=== PATIENT | male | born 1945 | race Caucasian/White ===

== ENCOUNTER → 2017-08-21 | Outpatient (CLI) | payer MEDICARE ==
[~2017-08-21] MED LIST: AMITRIPTYLINE10 MG PO; AMITRIPTYLINE100 M1 PO; AMITRIPTYLINE50 MG PO; ASPIRIN81 M1 PO; AUGMENTIN 875 M1 TAB PO; CILOXAN 5 ML5 ML OPH; FLAGYL500 MG PO; FLOMAX0.4 MG PO; LEADER NATURA500 MCG PO; LORAZEPAM0.5 MG PO; NORCO 5-325 TA1 EACH PO; PRILOSEC20 MG PO; TRAZADONE HYDR100 MG PO; VENLAFAXINE150 MG PO; VIAGRA100 MG PO; VITAMIN B12500 MCG PO; Zofran4 MG PO
[2017-08-21 10:16] LABS: HEMATOCRIT 48.4 % (42.0-52.0); HEMOGLOBIN 16.9 g/dl (14.0-18.0); MEAN CELL VOLUME 89.1 fl (80.0-94.0); MEAN CORPUSCULAR HGB 31.1 pg (27.0-31.0); MEAN CORPUSCULAR HGB CONC 34.9 g/dl (33.0-37.0); MEAN PLATELET VOLUME 9.8 fl (9.6-12.3); RED BLOOD COUNT 5.43 10*6/uL (4.50-5.90); RED CELL DISTRI WIDTH 13.3 % (0-14.5); WHITE BLOOD COUNT 7.4 10*3/uL (4.8-10.8)
[2017-08-21 10:39] LABS: ALBUMIN 3.6 gm/dl (3.1-4.5); BUN 11 mg/dl (7-24); CHLORIDE 104 mmol/L (98-107); CHOLESTEROL 149 mg/dL (<200); CPK 124 U/L (39-308); CREATININE 1.33 mg/dL (0.70-1.30); HDL CHOLESTEROL 47 mg/dl (40-60); LDL CHOLESTEROL 60 mg/dL (9-159); POTASSIUM 4.2 mmol/L (3.5-5.1); SGOT/AST 24 IU/L (3-35); SGPT/ALT 30 U/L (12-78); SODIUM 141 mmol/L (136-145); TRIGLYCERIDES 212 mg/dl (<150); VLDL CHOLESTEROL 42 mg/dL (6-40)
[2017-08-21 10:47] LABS: ALKALINE PHOSPHATASE 93 U/L (45-117)
== END | disposition home or self-care (01) ==
LOC: LAB 09:38
PROVIDERS: Family Medicine
DX: E55.9 Vitamin D deficiency, unspecified (principal); E78.00 Pure hypercholesterolemia, unspecified

== ENCOUNTER → 2017-09-26 | Outpatient (CLI) | payer MEDICARE ==
[~2017-09-26] MED LIST changes: +ARICEPT5 M1 PO; +Asacol PO; +MELATONIN3 MG PO; +OMEPRAZOLE MAGN20 MG PO; +PRILOSEC2.5 MG PO; -PRILOSEC20 MG PO; +REFRESH TEARS15 ML OU; +TRAZODONE150 MG PO; +VITAMIN D-32000 UNIT PO
== END | disposition home or self-care (01) ==
LOC: LAB 14:05
DX: R19.7 Diarrhea, unspecified (principal); G89.29 Other chronic pain

== ENCOUNTER 2017-09-27 01:40 | Inpatient (IN) | payer MEDICARE, OTHER ==
[2017-09-27] VITALS (11 sets, daily range): BP systolic 102–137; BP diastolic 62–88
[~2017-09-27] VITALS: Ht 180.3 cm; Wt 104.6 kg
--- NOTE | ~2017-09-27 | DS ---
[place], [place] DISCHARGE SUMMARY NAME: CJ MURPHY UNIT #: [id number] ROOM: 521 DOCTOR: HIEU AGUIRRE MD BIRTHDATE: [birth year] DOS: 09/29/2017 DIAGNOSES: 1. Diarrhea of unknown etiology, status post endoscopy and colonoscopy. Biopsies pending. 2. Small hiatal hernia with gastritis and duodenitis. 3. History of chronic otitis media with tympanostomy. 4. Major depression, recurrent, mild. 5. Polyp removal from colonoscopy with diverticulosis. MEDICATIONS ON DISCHARGE: As continued the patient's home medications and the patient was also started on Asacol for 7 days, the PCP to determine the continuation of medication after pathology report is available. The patient was started on famotidine 40 mg daily, which was started by Dr. Saavedra. HOSPITAL COURSE: This patient is not known to me. Patient of Dr. Roberts, comes in with complaints of diarrhea of 2 months' duration. Over 2 months, he keeps having diarrhea on and off. There is no associated fever, no associated blood in the stools. No abdominal pain. He was seen in the Emergency Room, a CT scan was done, which was negative except for diverticulosis. After admission, IV fluids were given. Ova and parasites, stool for C. diff was checked. They all came back negative. He was started on Asacol for possible microscopic colitis. The patient had a consultation with Dr. Saavedra. He has chronic kidney disease with mild acute kidney injury from ATN. IV fluids were given. This did bring the kidney functions back to its baseline. He had drooping of the left eye, which gets worse as the day progresses. Myasthenia gravis workup was done, we do not have the results yet. The patient also had workup for celiac sprue. We do not have the results of that either at the time of dictation. The patient after colonoscopy and endoscopy was discharged home to be followed by Dr. Roberts. The patient is also advised to talk to PCP about readjustment of psych medications. [place], [place] DISCHARGE SUMMARY NAME: CJ MURPHY UNIT #: [id number] ROOM: 521 DOCTOR: HIEU AGUIRRE MD BIRTHDATE: [birth year] HIEU AGUIRRE MD CM:JOÃO 1925 223 HIEU AGUIRRE MD 10/02/17 0211 interface
--- NOTE | ~2017-09-27 | CON ---
[place], [place] REPORT OF CONSULTATION NAME: CJ MURPHY UNIT #: [id number] ROOM: 521 DOCTOR: KAIDEN HAHN MD BIRTHDATE: [birth year] DOS: 09/29/2017 HISTORY OF PRESENT ILLNESS: This gentleman has presented with chief complaint of abdominal distress, cramp, diarrhea with initial white blood cell was 13 with H and H of 19 and 56. His calcium was 4.6, which is within normal limit in this laboratory. Lactic acid is 2.8. INR was 1.1. Comprehensive metabolic panel: BUN and creatinine are 11 and 1.3, GFR greater than 60. Liver function tests normal. Troponin within normal limits. CT scan of the abdomen and pelvis was performed and no evidence of obstructive pathology, status post cholecystectomy and coronary calcifications are seen. A small hiatal hernia was noticed. Hepatic steatosis is seen as well. There is no bowel wall thickening in the small bowel. Lactic acid normalized to 1.8. C. diff at 2 sessions was done, both negative. Ova and parasite negative. Blood cultures, no growth was identified. PAST MEDICAL HISTORY: Enteritis, atypical chest pain. PAST SURGICAL HISTORY: Neck and gallbladder cholecystectomy. SOCIAL HISTORY: Nonsmoker, nonalcohol consumer. ALLERGIES: Allergic to no medication. FAMILY HISTORY: Noncontributory. MEDICATION: List has been reviewed, associated with anxiety, PTSD history. He has been on omeprazole at home. REVIEW OF SYSTEMS: HEENT: Denies double vision, blurred vision. RESPIRATORY: Denies shortness of breath. CARDIOVASCULAR: Denies acute chest pain. DIGESTIVE SYSTEM: Abdominal pain, cramp, diarrhea. PHYSICAL EXAMINATION: VITAL SIGNS: Stable. HEENT: Head is normocephalic, nontraumatic. Mouth and buccal mucosa benign. NECK: Supple, no thyromegaly, no cervical lymphadenopathy. CHEST: Symmetric anatomy, equal expansion. No wheeze, no rhonchi. HEART: Normal sinus rhythm, no gallop, no murmur. ABDOMEN: Soft. No hepato-organomegaly. Bowel sounds present. No pulsatile mass. EXTREMITIES: No cyanosis, no pedal edema. NEUROLOGIC: Alert, oriented to time, place, person. IMPRESSION: Diarrhea, persistently with Clostridium difficile and ova and parasite negativity. Blood cultures negative. PLAN AND DISCUSSION: Investigation of persistent diarrhea. Other adjunctive diagnoses as outlined in past medical history, anxiety as well as PTSD as well [place], [place] REPORT OF CONSULTATION NAME: CJ MURPHY UNIT #: [id number] ROOM: 521 DOCTOR: KAIDEN HAHN MD BIRTHDATE: [birth year] as fatty metamorphosis of the liver and coronary artery calcification. We are going to proceed with colonoscopy. KAIDEN HAHN MD CM:CONSTR:REPORT OF CONSULTATION 1644 09/30/17 0155 interface
--- NOTE | ~2017-09-27 | O ---
[place], [place] OPERATIVE NOTE [id number] UNIT #: [id number] ROOM: 521 DOCTOR: KAIDEN HAHN MD BIRTHDATE: [birth year] DOS: 09/29/2017 INDICATIONS: A 72 years old patient, who has presented with multiple issues among which has been compliant of diarrhea, change in bowel habit, dyspepsia, diarrhea has been investigated. No infectious causes were identified. A CT scan of the abdomen and pelvis was obtained. Coronary calcification, hepatic steatosis, prior cholecystectomy, all has been recognized. The patient with dyspepsia and diarrhea, undergoing investigation. PROCEDURE: Today's procedure part of investigation is panendoscopy plus biopsy and photographic series and colonoscopy plus biopsy. PREMEDICATION: Versed and Diprivan. SCOPE: Olympus forward-viewing gastroscope Q10 video. REPORT: After putting the patient in left lateral position and application of lubricant to the scope. Scope was introduced. Thereafter, under direct visualization, advanced through the length of esophagus without difficulty. Small hiatal hernia was noticed. Gastric pouch was entered. Gastritis was identified. Antral biopsy obtained. Duodenum was entered. Duodenitis seen. Air was suctioned out. Photographic series obtained. The patient extubated, tolerated procedure well. IMPRESSION: Small hiatal hernia, 2 cm, gastritis, and duodenitis. PLAN AND DISCUSSION: We will treat this condition with famotidine 40 mg 1 daily and clinically reassess. We will proceed with colonoscopy as well. GASTROENDOSCOPIC REPORT INDICATIONS: The patient has presented with diarrhea, abdominal cramp, undergoing investigation. The patient suspected pathology in the colon with diarrhea. PROCEDURE: Today's procedure part of investigation is colonoscopy plus polypectomy plus biopsies. PREMEDICATION: Versed and Diprivan. SCOPE: Olympus forward-viewing colonoscope 10L video. REPORT: After putting the patient in left lateral position and application of lubricant to the scope, the scope was introduced. Thereafter, under direct visualization, I advanced through the length of colon without difficulty. Random biopsies of the colon were obtained. Sessile polypoid lesion in hepatic flexure with piecemeal polypectomy was done. Diverticulosis was identified, therefore base of the cecum explored, appendiceal orifice identified, ileocecal valve was defined. Scope was gradually withdrawn. The patient was extubated, tolerated procedure well. [place], [place] OPERATIVE NOTE NAME: CJ MURPHY UNIT #: [id number] ROOM: 521 DOCTOR: SELMA SCHOFIELD,KAIDEN BIRTHDATE: [birth year] IMPRESSION: 1. Sessile polyp with lesion and hepatic flexure, status post piecemeal polypectomy. 2. Status post random biopsy of colon for etiology of diarrhea, ruling out collagenous colitis. 3. Rare diverticulosis of the left side of the colon and hyperplastic polyps with lesions, small. PLAN AND DISCUSSION: This patient is status post cholecystectomy. C. diff and ova and parasite has been negative. All other studies negative. I am going to proceed with trial of Questran 1 pack daily and follow up in 2 weeks in the office with the biopsy reassessment. KAIDEN HAHN MD CM:OPRCLARKORD:OPERATIVE NOTE 1720 [id number] HIEU HAHN MD 09/29/17 1807 interface
--- NOTE | ~2017-09-27 | PR ---
[place], [place] PROGRESS NOTE [id number] UNIT #: [id number] ROOM: 521 DOCTOR: HIEU AGUIRRE MD BIRTHDATE: [birth year] DOS: SUBJECTIVE: The patient states that he is getting enemas, so he is not really sure whether his diarrhea has resolved, but he did not have more than 2 bowel movements yesterday during daytime. OBJECTIVE: VITAL SIGNS: Graphic trend shows blood pressure 128/65, pulse of 54, respirations 20, temperature 98.4. LUNGS: Clear. HEART: Regular. ABDOMEN: Obese, nontender. ASSESSMENT AND PLAN: 1. Diarrhea of unknown etiology, most likely microscopic colitis. Awaiting colonoscopy with biopsies today. 2. Acute kidney injury, possibly from mild dehydration, which has corrected. He is back at his baseline of stage 3 renal failure. 3. History of depression, on multiple medications, which are continued. The plan is to discharge him to home today after the colonoscopy. HIEU AGUIRRE MD CM:PNTRANS 1 [id number] HIEU AGUIRRE MD 09/29/17 0947 interface
--- NOTE | ~2017-09-27 | WRIGHTHP ---
[place], [place] PATIENT HISTORY AND PHYSICAL EXAM NAME: CJ MURPHY [facility] #: [id number] UNIT #: [id number] ROOM: 521 DOCTOR: HIEU AGUIRRE MD BIRTHDATE: [birth year] DOS: 09/27/2017 HISTORY OF PRESENT ILLNESS: This patient is 72-year-old, patient of Dr. Roberts, comes in with complaints of diarrhea for 2 months' duration. The patient states that the diarrhea comes and goes, sometimes it lasts for days without any relief at all and then sometimes it quits for a few days and then it comes back. He denies having any chest pains, palpitations. He does not have any fever or chills. He does have some occasional abdominal pain, but does not have any urinary symptoms. His pain is all across his abdomen and it radiates up into his chest at times. He has not been placed on any new medications. He does not take any [id number] medications other than his aspirin. PAST MEDICAL HISTORY: Significant for history of major depression, mild; history of chronic otitis media with history of tympanostomy placement. MEDICATIONS: He is currently on amitriptyline 100 at bedtime, aspirin 81 daily, vitamin D 2000 units daily, B12 500 mcg daily, Aricept 5 daily, lorazepam 0.5 daily, melatonin 3 mg at bedtime, omeprazole 20 daily, trazodone 150 at bedtime, venlafaxine 150 mg daily. SOCIAL HISTORY: Nonsmoker, does not use any alcohol. Lives at home. He is retired. He is . He has 3 grown children. PHYSICAL EXAMINATION: GENERAL: He is awake and alert and oriented. VITAL SIGNS: Graphic trend shows blood pressure 111/62, pulse 63, respirations 20, temperature 98.1. LUNGS: Diminished breath sounds. No wheezes heard. HEART: Regular. ABDOMEN: Obese, soft. Some diffuse tenderness present. EXTREMITIES: Without any edema. HEENT: Left side, there is drooping of his left eyelid. ASSESSMENT AND PLAN: 1. The patient with chronic diarrhea, unknown etiology. Dr. Saavedra has been consulted. Infectious Disease workup so far with ova and parasites, stool for Clostridium difficile has come back negative. Continue IV fluids. The patient may have underlying microscopic colitis. We will do a colonoscopy. 2. CT of the abdomen and pelvis does not show any evidence of any ongoing pathology. 3. Post-cholecystectomy, may have post-cholecystectomy diarrhea. I will place him on Questran. 4. Chronic kidney disease. The patient is aware of his history. Slow IV rehydration will be given. Repeat labs will be ordered for tomorrow. 5. Possibility of myasthenia gravis was raised with the drooping left eye. The patient tells me that he had complete workup and he was told that this has come back negative. [place], [place] PATIENT HISTORY AND PHYSICAL EXAM [facility]: [id number] UNIT #: [id number] ROOM: 521 DOCTOR: HIEU AGUIRRE MD BIRTHDATE: [birth year] HIEU AGUIRRE MD CM:HISPHYS:PATIENT HISTORY AND PHYSICAL EXAMINATION 1620 173 HIEU AGUIRRE MD 09/27/17 1730 interface
--- NOTE | ~2017-09-27 | PR ---
[place], [place] PROGRESS NOTE [id number] UNIT #: [id number] ROOM: 521 DOCTOR: HIEU AGUIRRE MD BIRTHDATE: [birth year] DOS: SUBJECTIVE: The patient did have 3-4 bowel movements during the day yesterday. He rested well during the night and did not have any this morning. OBJECTIVE: VITAL SIGNS: Graphic trend shows blood pressure of 116/65, pulse of 62, respirations 20, temperature 98.2. LUNGS: Diminished breath sounds. No wheezes heard. HEART: Regular. ABDOMEN: Obese. EXTREMITIES: Without any edema. HEENT: No drooping of the left eyelid noted this morning. ASSESSMENT AND PLAN: 1. The patient with diarrhea, possibly multifactorial, still in the evaluation process. He is still being evaluated for medical conditions. Antigliadin antibody will be ordered today and also he continues to be on Asacol. Dr. Saavedra possibly will do the colonoscopy tomorrow. If not, plan is to discharge. 2. Left-sided eye drooping. This is not present this morning, but as the day progresses it gets worse, so we will have to rule out myasthenia gravis with anti-cholinesterase antibodies. HIEU AGUIRRE MD CM:PNTRANS [id number] HIEU AGUIRRE MD 09/28/17 1051 interface
[~2017-09-27 01:40] MED LIST changes: -ARICEPT5 M1 PO; -Asacol PO; -MELATONIN3 MG PO; -OMEPRAZOLE MAGN20 MG PO; -REFRESH TEARS15 ML OU; -TRAZODONE150 MG PO; -VITAMIN D-32000 UNIT PO
[2017-09-27 02:13] LABS: BASO # 0.1 10*3/uL (0.0-0.1); BASO % 0.4 % (0.0-1.0); EOS # 0.7 10*3/uL (0.0-0.4); EOS % 5.4 % (1.0-4.0); HEMATOCRIT 56.9 % (42.0-52.0); HEMOGLOBIN 19.3 g/dl (14.0-18.0); LYMPH % 15.3 % (27.0-41.0); MEAN CELL VOLUME 88.8 fl (80.0-94.0); MEAN CORPUSCULAR HGB 30.1 pg (27.0-31.0); MEAN CORPUSCULAR HGB CONC 33.9 g/dl (33.0-37.0); MEAN PLATELET VOLUME 9.4 fl (9.6-12.3); MONO # 0.8 10*3/uL (0.1-1.0); MONO % 6.3 % (3.0-9.0); NEUT # 9.6 10*3/uL (2.3-7.9); NEUT % 72.3 % (47.0-73.0); PLATELET COUNT AUTOMATED 169 10*3/uL (130-400); RED BLOOD COUNT 6.41 10*6/uL (4.50-5.90); RED CELL DISTRI WIDTH 13.2 % (0-14.5); WHITE BLOOD COUNT 13.2 10*3/uL (4.8-10.8)
[2017-09-27 02:23] LABS: INTERNATIONAL NORM RATIO 1.1 (2.0-3.5)
[2017-09-27 02:29] LABS: CHLORIDE 105 mmol/L (98-107); POTASSIUM 3.7 mmol/L (3.5-5.1); SODIUM 141 mmol/L (136-145)
[2017-09-27 02:45] LABS: ALBUMIN 3.8 gm/dl (3.1-4.5); ALKALINE PHOSPHATASE 77 U/L (45-117); BUN 11 mg/dl (7-24); CREATININE 1.32 mg/dL (0.70-1.30); LIPASE 126 U/L (73-393); SGOT/AST 18 IU/L (3-35); SGPT/ALT 30 U/L (12-78); TOTAL PROTEIN 7.4 gm/dL (6.4-8.2)
[2017-09-27 02:50] LABS: TROPONIN I < 0.015 ng/ml (<0.045)
[2017-09-27 03:38] LABS: BILIRUBIN NEGATIVE (NEGATIVE); BLOOD NEGATIVE (NEGATIVE); CLARITY SL CLOUDY (CLEAR); COLOR YELLOW (YELLOW); GLUCOSE NEGATIVE (NEGATIVE); KETONE TRACE (NEGATIVE); LEUKO ESTERASE NEGATIVE (NEGATIVE); NITRITE NEGATIVE (NEGATIVE); UROBILINOGEN 0.2 E.U./dl (0.2-1.0)
[2017-09-27 03:54] LABS: WBC 0-2 wbc/hpf (0-5)
[2017-09-27 03:55] LABS: BACTERIA TRACE
[2017-09-27] MEDS ORDERED: VITAMIN D-32000 UNIT PO (06:24)
[2017-09-27] MEDS ORDERED: MELATONIN3 MG PO (06:25)
[2017-09-27] MEDS ORDERED: OMEPRAZOLE MAGN20 MG PO (06:27)
[2017-09-27] MEDS ORDERED: ARICEPT5 M1 PO (06:35)
[2017-09-27] MEDS ORDERED: TRAZODONE150 MG PO (06:37)
[2017-09-27] MEDS ORDERED: REFRESH TEARS15 ML OU (06:39)
[2017-09-28] VITALS: BP 106/63
[2017-09-28 05:55] LABS: BASO % 0.3 % (0.0-1.0); EOS # 1.3 10*3/uL (0.0-0.4); EOS % 13.4 % (1.0-4.0); LYMPH # 2.7 10*3/uL (1.3-4.4); LYMPH % 27.3 % (27.0-41.0); MEAN CELL VOLUME 91.3 fl (80.0-94.0); MEAN CORPUSCULAR HGB 31.2 pg (27.0-31.0); MEAN CORPUSCULAR HGB CONC 34.2 g/dl (33.0-37.0); MEAN PLATELET VOLUME 9.6 fl (9.6-12.3); MONO # 0.9 10*3/uL (0.1-1.0); MONO % 8.6 % (3.0-9.0); NEUT % 50.1 % (47.0-73.0); PLATELET COUNT AUTOMATED 132 10*3/uL (130-400); RED BLOOD COUNT 5.03 10*6/uL (4.50-5.90); RED CELL DISTRI WIDTH 13.2 % (0-14.5)
[2017-09-28 06:12] LABS: BUN 10 mg/dl (7-24); CHLORIDE 108 mmol/L (98-107); CREATININE 1.36 mg/dL (0.70-1.30); POTASSIUM 3.6 mmol/L (3.5-5.1); SODIUM 142 mmol/L (136-145)
[2017-09-28 06:23] LABS: HEMATOCRIT 45.9 % (42.0-52.0); HEMOGLOBIN 15.7 g/dl (14.0-18.0)
[2017-09-28 08:00] VITALS: BP 116/65
[2017-09-28 12:00] VITALS: BP 107/55
[2017-09-28 16:00] VITALS: BP 118/72
[2017-09-28 20:00] VITALS: BP 137/78
[2017-09-29] VITALS (7 sets, daily range): BP systolic 104–147; BP diastolic 51–80
[2017-09-29] MEDS ORDERED: Asacol PO (09:01)
[2017-09-30 13:06] LABS: t-TRANSGLUTAMINASE (tTG) IGA <2 U/mL (0-3); t-TRANSGLUTAMINASE (tTG) IgG 3 U/mL (0-5)
[2017-09-30 15:04] LABS: ENDOMYSIAL ANTIBODY IgA Negative (Negative)
== END 2017-09-29 19:05 | disposition home or self-care (01) | DRG 872 ==
LOC: ED 01:40 → 5E 05:14 → EDHOLD 05:14 → 5E 05:24
PROVIDERS: Emergency Medicine Emergency Medical Services; Internal Medicine; Internal Medicine Gastroenterology
PROC: 5A09357 Assistance with Respiratory Ventilation, Less than 24 Consecutive Hours, Continuous Positive Airway Pressure (ICD-10-PCS; principal; 2017-09-28)
PROC: 0DB68ZX Excision of Stomach, Via Natural or Artificial Opening Endoscopic, Diagnostic (ICD-10-PCS; 2017-09-29)
PROC: 0DBL8ZZ Excision of Transverse Colon, Via Natural or Artificial Opening Endoscopic (ICD-10-PCS; 2017-09-29)
PROC: 0DBE8ZX Excision of Large Intestine, Via Natural or Artificial Opening Endoscopic, Diagnostic (ICD-10-PCS; 2017-09-29)
DX: A41.9 Sepsis, unspecified organism (principal); N17.9 Acute kidney failure, unspecified; F32.9 Major depressive disorder, single episode, unspecified; N18.3 Chronic kidney disease, stage 3 (moderate); K44.9 Diaphragmatic hernia without obstruction or gangrene; K76.0 Fatty (change of) liver, not elsewhere classified; K52.9 Noninfective gastroenteritis and colitis, unspecified; F43.10 Post-traumatic stress disorder, unspecified; K29.70 Gastritis, unspecified, without bleeding; K63.5 Polyp of colon; K29.80 Duodenitis without bleeding; K57.30 Diverticulosis of large intestine without perforation or abscess without bleeding; I25.10 Atherosclerotic heart disease of native coronary artery without angina pectoris; F41.9 Anxiety disorder, unspecified; Z87.442 Personal history of urinary calculi; Z79.899 Other long term (current) drug therapy; Z79.82 Long term (current) use of aspirin; Z90.49 Acquired absence of other specified parts of digestive tract

== ENCOUNTER 2017-12-29 09:58 | Emergency (ER) | payer MEDICARE, OTHER ==
[~2017-12-29] VITALS: Ht 180.3 cm; Wt 106.6 kg
[~2017-12-29 09:58] MED LIST changes: +ARICEPT5 M1 PO; +Asacol PO; +MELATONIN3 MG PO; +OMEPRAZOLE MAGN20 MG PO; +REFRESH TEARS15 ML OU; +TRAZODONE150 MG PO; +VITAMIN D-32000 UNIT PO
[2017-12-29 10:17] LABS: BASO % 0.4 % (0.0-1.0); EOS # 0.4 10*3/uL (0.0-0.4); EOS % 3.7 % (1.0-4.0); HEMATOCRIT 54.8 % (42.0-52.0); HEMOGLOBIN 18.6 g/dl (14.0-18.0); LYMPH # 1.9 10*3/uL (1.3-4.4); MEAN CELL VOLUME 90.1 fl (80.0-94.0); MEAN CORPUSCULAR HGB 30.6 pg (27.0-31.0); MEAN CORPUSCULAR HGB CONC 33.9 g/dl (33.0-37.0); MEAN PLATELET VOLUME 9.5 fl (9.6-12.3); MONO # 0.9 10*3/uL (0.1-1.0); MONO % 9.1 % (3.0-9.0); NEUT # 6.8 10*3/uL (2.3-7.9); NEUT % 67.5 % (47.0-73.0); PLATELET COUNT AUTOMATED 161 10*3/uL (130-400); RED BLOOD COUNT 6.08 10*6/uL (4.50-5.90); RED CELL DISTRI WIDTH 12.9 % (0-14.5); WHITE BLOOD COUNT 10.1 10*3/uL (4.8-10.8)
[2017-12-29 10:36] LABS: ALBUMIN 3.8 gm/dl (3.1-4.5); ALKALINE PHOSPHATASE 75 U/L (45-117); BUN 16 mg/dl (7-24); CHLORIDE 105 mmol/L (98-107); LIPASE 80 U/L (73-393); SGOT/AST 17 IU/L (3-35); SGPT/ALT 39 U/L (12-78); SODIUM 138 mmol/L (136-145); TOTAL PROTEIN 7.5 gm/dL (6.4-8.2)
[2017-12-29] MEDS ORDERED: ZOFRAN4 MG PO (12:07)
[2017-12-29 13:00] VITALS: BP 106/65
== END 2017-12-29 13:16 | disposition home or self-care (01) ==
LOC: ED 09:58
PROVIDERS: Nurse Practitioner Family
DX: R10.9 Unspecified abdominal pain (principal); R03.0 Elevated blood-pressure reading, without diagnosis of hypertension; Z79.82 Long term (current) use of aspirin; Z79.899 Other long term (current) drug therapy

== ENCOUNTER 2018-01-16 19:47 | Inpatient (IN) | payer OTHER, MEDICARE ==
[~2018-01-16] VITALS: Ht 180.3 cm; Wt 101.7 kg
--- NOTE | ~2018-01-16 | PR ---
[place], [place] PROGRESS NOTE NAME: KATHERINE LIUCJ Granados UNIT #: [id number] ROOM: 408 DOCTOR: RAMÓN CHANDLER MD BIRTHDATE: [birth year] DOS: 01/19/2018 CARDIOLOGY FOLLOWUP VISIT NOTE REASON FOR VISIT: Syncope. HISTORY OF PRESENT ILLNESS: The patient is feeling better. Denies any chest pain, shortness of breath, no palpitation, no dizziness, no further syncope. No PND or orthopnea. No nausea, vomiting. No other complaints. REVIEW OF SYSTEMS: Review of the 8 systems negative except as mentioned above. RHYTHM STRIPS: The patient in sinus rhythm. PHYSICAL EXAMINATION: VITAL SIGNS: Blood pressure 127/65, pulse 94, respiratory rate 18, weight 101.9 kilos. GENERAL: Alert, comfortable, in no acute distress. NECK: Supple, no distended neck veins, no carotid bruit. CHEST: Symmetrical, nontender. LUNGS: Clear to auscultation bilaterally. HEART: Regular rhythm, no S3. ABDOMEN: Benign, nontender. Bowel sounds normal. EXTREMITIES: Showed no edema. Distal pulses are palpable. SKIN: Warm and dry. No cyanosis, no clubbing. NEUROLOGIC: The patient is alert, oriented. No focal neurologic deficit. RECTAL: Deferred. GENITOURINARY: Deferred. MEDICATIONS AND ALLERGIES: Reviewed. IMPRESSION: 1. Syncope, etiology unknown, no further recurrence. 2. Non-morbid obesity. 3. Mild dehydration, stable. RECOMMENDATIONS: 1. Continue current medication. 2. We will check his 2D echo today. If the 2D echo is unremarkable, he can be discharged home today. 3. We would arrange for 30-day cardiac event monitor to rule out any adriana or tachyarrhythmias. 4. There is no family at bedside. 5. Risk factor modification for diet, exercise, weight loss discussed. [place], [place] PROGRESS NOTE NAME: CJ MURPHY JR UNIT #: [id number] ROOM: 408 DOCTOR: RAMÓN CHANDLER MD BIRTHDATE: [birth year] RAMÓN CHANDLER MD CM:PNTRANS 1923 0 RAMÓN CHANDLER MD 01/20/180 interface
--- NOTE | ~2018-01-16 | PR ---
[place], [place] PROGRESS NOTE NAME: CJ MURPHY JR UNIT #: [id number] ROOM: 408 DOCTOR: SRINIVAS LINCOLN MD BIRTHDATE: [birth year] DOS: 01/18/2018 SUBJECTIVE: The patient is starting to feel better, although he has not ambulated much after hospital admission after weekend and physical therapy is not available. PHYSICAL EXAMINATION: VITAL SIGNS: Blood pressure 125/72, heart rate of 61 beats per minute, afebrile, breathing normally. IMPRESSION: 1. The patient with two syncopal episodes and hypotension, asymptomatic and placed on the quality assurance monitor. The patient's blood pressure has improved to 125 systolic over 72 diastolic, with hydration with IV fluids. 2. Chronic fatigue and tiredness apparently at least partly related to the four, sedating medicines he is taking including lorazepam, trazodone, [facility]riptyline [facility]. 3. Posttraumatic stress disorder, being treated. Home meds continued. 4. Generalized anxiety disorder, treated with lorazepam as needed. 5. Cardiology consult obtained who are performing an echocardiogram study on the patient tomorrow. SRINIVAS LINCOLN MD CM:BETHANYTRANS 1815 0429 SRINIVAS LINCOLN MD 01/19/18 0427 interface
--- NOTE | ~2018-01-16 | DS ---
[place], [place] DISCHARGE SUMMARY NAME: [facility]URPHY [id number] UNIT #: [id number] ROOM: 408 DOCTOR: SRINIVAS LINCOLN MD BIRTHDATE: [birth year] DOS: 01/19/2018 DISCHARGE DIAGNOSES: 1. Episode of loss of consciousness from uncertain etiology, probable vasovagal episodes. 2. Chronic fatigue and tiredness, probably from the patient taking sedating medicines including psychotropics. The patient takes lorazepam, trazodone, amitriptyline and venlafaxine, also Melatonin. 3. Posttraumatic stress disorder. 4. Generalized anxiety disorder. 5. History of colitis, inflammatory bowel disease, treated with Asacol. 6. Chronic otitis media and tympanoplasty. 7. Major depression, recurrent, mild. 8. History of polypectomy and diverticulosis. 9. Major depression, recurrent, mild to moderate. 10. Generalized anxiety disorder. HOSPITAL COURSE: The patient presented with 2 episodes of loss of consciousness. At this time, he hit his head and broke through the A-[address] of the head did not show any acute abnormality and he has been ambulating well since admission. The patient was continued on a cardiac tech and remained in normal sinus rhythm. Cardiology consult and an echocardiogram was obtained, which showed some left ventricular hypertrophy, but normal left ventricular ejection fraction. The patient is being ordered an outpatient cardiac event monitor by the deck worker. Hypotension and hypovolemia. Blood pressure was 88/64, when he presented to the hospital. Apparently, the patient was dehydrated and he was hydrated with the normal saline and his blood pressures have stayed normal. The patient is walking normally in the hallways. Chronic tiredness and fatigue, apparently from being on sedating and psychotropic medicines like lorazepam, trazodone, Amitriptyline, venlafaxine, and also Melatonin. The patient will ask his psychiatrist at the [facility] to see if these medications can be reduced. Posttraumatic stress disorder, treated by the psychiatrist at [facility]. Generalized anxiety disorder, treated with lorazepam as needed. The patient remained in normal sinus rhythm at the hospital and was seen by deck worker. Echocardiogram was performed as mentioned above and he is due for an outpatient event monitor study. IMPRESSION: Echocardiogram results as mentioned above. BUN and creatinine and serum electrolytes are normal. Normal CBC. CT of the head did not show any acute abnormality. DISCHARGE MANAGEMENT: Amitriptyline 100 mg a day, venlafaxine 150 mg daily, mesalamine 800 mg 3 times a day, trazodone 50 mg at bedtime p.r.n. for sleep, lorazepam 0.5 mg daily p.r.n. for anxiety. [place], [place] DISCHARGE SUMMARY NAME: CJ MURPHY JR UNIT #: [id number] ROOM: [facility] DOCTOR: SRINIVAS LINCOLN MD BIRTHDATE: [birth year] SRINIVAS LINCOLN MD CM:JOÃO 1635 1854 SRINIVAS LINCOLN MD 01/19/18 1853 interface
--- NOTE | ~2018-01-16 | WRIGHTHP ---
[place], [place] PATIENT HISTORY AND PHYSICAL EXAM NAME: CJ MURPHY JR [facility] #: [id number] UNIT #: [id number] ROOM: 408 DOCTOR: SRINIVAS LINCOLN MD BIRTHDATE: [birth year] DOS: 01/16/2018 HISTORY OF PRESENT ILLNESS: A 72-year-old gentleman with a past medical history of: 1. PTSD. 2. History of colitis, inflammatory bowel disease being treated with Asacol and diarrhea history. 3. Chronic otitis media with tympanoplasty. 4. Major depression, recurrent, mild. 5. History of polypectomy and diverticulosis. 6. Major depression, recurrent, mild to moderate. 7. Generalized anxiety disorder. The patient presented to the Emergency Department after 2 episodes of losing consciousness. One time, he hit his head and broke the oven glass. The patient was evaluated in the Emergency Department with a CT of the head, which did not show any acute abnormality. The patient's creatinine was found to be elevated at 1.5 and he was recommended for admission for dehydration and hypovolemia. The patient does have history of chronic diarrhea, which has improved with using Asacol for treatment of chronic colitis. The patient's blood pressure was staying low normal, but when he presented, his blood pressure was only 88 systolic over 64 diastolic. The patient was started on hydration with normal saline and he is feeling somewhat better. The patient says that he chronically feels tired, but he stays quite active, but he has quite an active lifestyle. No chest pain, no shortness of breath. No GI or urinary symptoms, otherwise. REVIEW OF SYSTEMS: RESPIRATORY: The patient does have history of some dyspnea with exertion, which is chronic for him. CARDIOVASCULAR: No chest pains or palpitations. GASTROINTESTINAL: Previous history of chronic diarrhea. HOME MEDICATIONS: Mesalamine, venlafaxine, amitriptyline, trazodone, lorazepam. FAMILY HISTORY: Noncontributory. ALLERGIES: No known drug allergies. PHYSICAL EXAMINATION: GENERAL: Alert, oriented x 3, moderately obese, in no visible distress. BMI of 31.2. HEENT AND NECK: Extraocular movements are intact. Sclerae are anicteric. Oral mucosa is moist and clean. No obvious facial weakness. Neck is supple without any lymphadenopathy. No thyromegaly. No JVD. No carotid arterial bruits. LUNGS: Clear to auscultation. No wheezing. No rhonchi. CARDIOVASCULAR SYSTEM: Heart rate is regular in rate and rhythm. S1 and S2 normally audible. No significant murmur or any other abnormal cardiac sounds. ABDOMEN: Soft, nontender. No obvious organomegaly. Bowel sounds are present. No obvious herniation. EXTREMITIES: Without significant cyanosis or edema. Warm to touch. [place], [place] PATIENT HISTORY AND PHYSICAL EXAM NAME: CJ MURPHY JR UNIT #: [id number] ROOM: [facility] DOCTOR: SRINIVAS LINCOLN MD BIRTHDATE: [birth year] CENTRAL NERVOUS SYSTEM: Alert and oriented x 3. Cranial nerves II-XII are intact. Speech is normal. The patient is able to move all extremities. Normal muscle strength. Deep tendon reflexes are equal on both sides. Plantars were downgoing. IMPRESSION: 1. The patient with two syncopal episodes and hypotension with systolic blood pressure of 88 when he presented to the Emergency Department. Now blood pressures are staying low normal and he is asymptomatic. The patient remains in normal sinus rhythm and I will get a Cardiology consult on him for an opinion. The patient is being hydrated with normal saline and his blood pressures improved and I will encourage him to walk. 2. Chronic tiredness apparently from using 4 different medications, which includes lorazepam, trazodone, amitriptyline and venlafaxine. 3. Post-traumatic stress disorder, treated with above-mentioned medications. 4. Generalized anxiety disorder, treated with lorazepam as needed. 5. I will keep the patient on the hospital today and order repeat serum electrolytes for tomorrow. SRINIVAS LINCOLN MD CM:HISPHYS:PATIENT HISTORY AND PHYSICAL EXAMINATION 02 47 SRINIVAS LINCOLN MD 01/17/181845 interface
[2018-01-16 19:47] VITALS: BP 127/89
[~2018-01-16 19:47] MED LIST changes: +ZOFRAN4 MG PO
[2018-01-16 20:11] LABS: BASO # 0.1 10*3/uL (0.0-0.1); BASO % 0.7 % (0.0-1.0); EOS # 0.5 10*3/uL (0.0-0.4); EOS % 6.1 % (1.0-4.0); HEMATOCRIT 51.9 % (42.0-52.0); HEMOGLOBIN 17.7 g/dl (14.0-18.0); LYMPH # 3.3 10*3/uL (1.3-4.4); LYMPH % 38.2 % (27.0-41.0); MEAN CELL VOLUME 90.1 fl (80.0-94.0); MEAN CORPUSCULAR HGB 30.7 pg (27.0-31.0); MEAN CORPUSCULAR HGB CONC 34.1 g/dl (33.0-37.0); MEAN PLATELET VOLUME 10.2 fl (9.6-12.3); MONO % 12.2 % (3.0-9.0); NEUT # 3.7 10*3/uL (2.3-7.9); NEUT % 42.7 % (47.0-73.0); PLATELET COUNT AUTOMATED 175 10*3/uL (130-400); RED BLOOD COUNT 5.76 10*6/uL (4.50-5.90); RED CELL DISTRI WIDTH 13.4 % (0-14.5); WHITE BLOOD COUNT 8.6 10*3/uL (4.8-10.8)
[2018-01-16 20:18] LABS: ACT PARTIAL THROMBO TIME 23.8 SECONDS (20.8-31.5)
[2018-01-16 20:24] LABS: ALBUMIN 4.3 gm/dl (3.1-4.5); ALKALINE PHOSPHATASE 95 U/L (45-117); BUN 19 mg/dl (7-24); CHLORIDE 103 mmol/L (98-107); POTASSIUM 3.6 mmol/L (3.5-5.1); SGOT/AST 20 IU/L (3-35); SGPT/ALT 34 U/L (12-78); SODIUM 136 mmol/L (136-145)
[2018-01-16 20:26] LABS: TROPONIN I < 0.015 ng/ml (<0.045)
[2018-01-16 20:39] LABS: BILIRUBIN 1+ (NEGATIVE); BLOOD NEGATIVE (NEGATIVE); CLARITY SL CLOUDY (CLEAR); COLOR YELLOW (YELLOW); GLUCOSE NEGATIVE (NEGATIVE); KETONE TRACE (NEGATIVE); LEUKO ESTERASE NEGATIVE (NEGATIVE); NITRITE NEGATIVE (NEGATIVE); PH 5.5 (5.0-9.0); SPECIFIC GRAVITY >= 1.030 (1.005-1.030)
[2018-01-16 20:53] LABS: BACTERIA TRACE; CALCIUM OXALATE CRYSTALS 1+; HYALINE CAST TNTC; MUCOUS 1+; RBC 0-2 rbc/hpf (0-2); WBC 0-2 wbc/hpf (0-5)
[2018-01-16 22:20] VITALS: BP 107/67
[2018-01-16 23:20] VITALS: BP 102/62
[2018-01-17 08:00] VITALS: BP 110/74
[2018-01-17 12:00] VITALS: BP 120/67
[2018-01-17 16:00] VITALS: BP 113/65
[2018-01-17 20:00] VITALS: BP 120/55
[2018-01-18] VITALS: BP 114/68; BP 124/102
[2018-01-18 07:02] LABS: BASO # 0.1 10*3/uL (0.0-0.1); BASO % 0.7 % (0.0-1.0); EOS # 0.7 10*3/uL (0.0-0.4); EOS % 9.7 % (1.0-4.0); HEMOGLOBIN 16.3 g/dl (14.0-18.0); LYMPH # 2.9 10*3/uL (1.3-4.4); LYMPH % 39.6 % (27.0-41.0); MEAN CELL VOLUME 92.3 fl (80.0-94.0); MEAN CORPUSCULAR HGB 30.7 pg (27.0-31.0); MEAN CORPUSCULAR HGB CONC 33.3 g/dl (33.0-37.0); MEAN PLATELET VOLUME 9.8 fl (9.6-12.3); MONO # 0.8 10*3/uL (0.1-1.0); MONO % 10.8 % (3.0-9.0); NEUT # 2.9 10*3/uL (2.3-7.9); NEUT % 38.9 % (47.0-73.0); PLATELET COUNT AUTOMATED 127 10*3/uL (130-400); RED BLOOD COUNT 5.31 10*6/uL (4.50-5.90); RED CELL DISTRI WIDTH 13.5 % (0-14.5); WHITE BLOOD COUNT 7.4 10*3/uL (4.8-10.8)
[2018-01-18 07:31] LABS: BUN 16 mg/dl (7-24); CHLORIDE 109 mmol/L (98-107); CREATININE 1.15 mg/dL (0.70-1.30); POTASSIUM 4.5 mmol/L (3.5-5.1); SODIUM 142 mmol/L (136-145)
[2018-01-18 08:00] VITALS: BP 137/81
[2018-01-18 12:00] VITALS: BP 119/73
[2018-01-18 16:00] VITALS: BP 125/72
[2018-01-18 20:00] VITALS: BP 138/83
[2018-01-19] VITALS: BP 136/69
[2018-01-19 07:01] LABS: BUN 13 mg/dl (7-24); CHLORIDE 111 mmol/L (98-107); POTASSIUM 4.1 mmol/L (3.5-5.1); SODIUM 146 mmol/L (136-145)
[2018-01-19 08:00] VITALS: BP 127/65
[2018-01-19 12:00] VITALS: BP 126/81
[2018-01-19 16:00] VITALS: BP 136/78
== END 2018-01-19 16:42 | disposition home or self-care (01) | DRG 315 ==
LOC: ED 19:47 → 4E 23:24 → EDHOLD 23:24 → 4E 01-17 00:04
PROVIDERS: Internal Medicine; Student in an Organized Health Care Education/Training Program
DX: I95.9 Hypotension, unspecified (principal); F33.1 Major depressive disorder, recurrent, moderate; R55 Syncope and collapse; F43.10 Post-traumatic stress disorder, unspecified; S80.812A Abrasion, left lower leg, initial encounter; E86.0 Dehydration; F41.1 Generalized anxiety disorder; H66.90 Otitis media, unspecified, unspecified ear; E66.9 Obesity, unspecified; S50.811A Abrasion of right forearm, initial encounter; W18.39XA Other fall on same level, initial encounter; Y93.89 Activity, other specified; Y92.89 Other specified places as the place of occurrence of the external cause; Z79.899 Other long term (current) drug therapy; Z79.82 Long term (current) use of aspirin; Y99.8 Other external cause status; Z68.31 Body mass index [BMI] 31.0-31.9, adult

== ENCOUNTER → 2018-06-18 | Outpatient (CLI) | payer MEDICARE ==
[2018-06-18 11:04] LABS: HEMATOCRIT 53.4 % (42.0-52.0); HEMOGLOBIN 17.7 g/dl (14.0-18.0); MEAN CELL VOLUME 93.2 fl (80.0-94.0); MEAN CORPUSCULAR HGB 30.9 pg (27.0-31.0); MEAN CORPUSCULAR HGB CONC 33.1 g/dl (33.0-37.0); MEAN PLATELET VOLUME 9.4 fl (9.6-12.3); RED BLOOD COUNT 5.73 10*6/uL (4.50-5.90); RED CELL DISTRI WIDTH 12.9 % (0-14.5); WHITE BLOOD COUNT 6.2 10*3/uL (4.8-10.8)
[2018-06-18 11:30] LABS: ALKALINE PHOSPHATASE 97 U/L (45-117); BUN 15 mg/dl (7-24); CHLORIDE 105 mmol/L (98-107); CHOLESTEROL 166 mg/dL (<200); CREATININE 1.27 mg/dL (0.70-1.30); HDL CHOLESTEROL 52 mg/dl (40-60); LDL CHOLESTEROL 65 mg/dL (9-159); SGOT/AST 23 IU/L (3-35); SGPT/ALT 37 U/L (12-78); SODIUM 139 mmol/L (136-145); TOTAL PROTEIN 7.5 gm/dL (6.4-8.2); TRIGLYCERIDES 245 mg/dl (<150); VLDL CHOLESTEROL 49 mg/dL (6-40)
== END | disposition home or self-care (01) ==
LOC: LAB 10:39
PROVIDERS: Family Medicine
DX: Z12.5 Encounter for screening for malignant neoplasm of prostate (principal); Z13.220 Encounter for screening for lipoid disorders; K21.9 Gastro-esophageal reflux disease without esophagitis; E03.9 Hypothyroidism, unspecified; E55.9 Vitamin D deficiency, unspecified

== ENCOUNTER 2019-06-02 20:05 | Emergency (ER) | payer MEDICARE ==
[~2019-06-02] VITALS: Ht 180.3 cm; Wt 102.1 kg
[2019-06-02 20:07] VITALS: BP 124/75
[2019-06-02 20:54] LABS: BASO % 0.4 % (0.0-1.0); EOS # 0.9 10*3/uL (0.0-0.4); EOS % 8.5 % (1.0-4.0); HEMATOCRIT 54.9 % (42.0-52.0); HEMOGLOBIN 18.7 g/dl (14.0-18.0); LYMPH # 1.7 10*3/uL (1.3-4.4); LYMPH % 15.7 % (27.0-41.0); MEAN CELL VOLUME 92.3 fl (80.0-94.0); MEAN CORPUSCULAR HGB 31.4 pg (27.0-31.0); MEAN CORPUSCULAR HGB CONC 34.1 g/dl (33.0-37.0); MONO # 0.9 10*3/uL (0.1-1.0); MONO % 7.9 % (3.0-9.0); NEUT # 7.2 10*3/uL (2.3-7.9); NEUT % 67.1 % (47.0-73.0); PLATELET COUNT AUTOMATED 187 10*3/uL (130-400); RED BLOOD COUNT 5.95 10*6/uL (4.50-5.90); RED CELL DISTRI WIDTH 12.8 % (0-14.5); WHITE BLOOD COUNT 10.8 10*3/uL (4.8-10.8)
[2019-06-02 21:11] LABS: ALBUMIN 3.8 gm/dl (3.1-4.5); ALKALINE PHOSPHATASE 86 U/L (45-117); BUN 16 mg/dl (7-24); CHLORIDE 107 mmol/L (98-107); CREATININE 1.26 mg/dL (0.70-1.30); LIPASE 100 U/L (73-393); POTASSIUM 3.6 mmol/L (3.5-5.1); SGOT/AST 24 IU/L (3-35); SGPT/ALT 28 U/L (12-78); SODIUM 139 mmol/L (136-145); TOTAL PROTEIN 7.6 gm/dL (6.4-8.2)
[2019-06-02 21:20] LABS: TROPONIN I < 0.015 ng/ml (<0.045)
== END 2019-06-02 22:17 | disposition home or self-care (01) ==
LOC: ED 20:05
PROVIDERS: Emergency Medicine
DX: R10.10 Upper abdominal pain, unspecified (principal); R14.3 Flatulence; R11.10 Vomiting, unspecified; R19.7 Diarrhea, unspecified; Z90.49 Acquired absence of other specified parts of digestive tract; Z79.899 Other long term (current) drug therapy; Z79.82 Long term (current) use of aspirin

== ENCOUNTER → 2019-07-26 | Outpatient (CLI) | payer MEDICARE | END | disposition home or self-care (01) | LOC: LAB 10:54 | PROVIDERS: Internal Medicine Gastroenterology | DX: R19.7 Diarrhea, unspecified (principal) ==

== ENCOUNTER 2020-01-28 16:25 | Emergency (ER) | payer OTHER, MEDICARE ==
[~2020-01-28] VITALS: Ht 180.3 cm; Wt 101.6 kg
[2020-01-28 17:05] LABS: BASO % 0.5 % (0.0-1.0); EOS # 0.3 10*3/uL (0.0-0.4); HEMATOCRIT 41.5 % (42.0-52.0); LYMPH # 2.2 10*3/uL (1.3-4.4); LYMPH % 37.1 % (27.0-41.0); MEAN CELL VOLUME 90.8 fl (80.0-94.0); MEAN CORPUSCULAR HGB 31.1 pg (27.0-31.0); MEAN CORPUSCULAR HGB CONC 34.2 g/dl (33.0-37.0); MEAN PLATELET VOLUME 9.8 fl (9.6-12.3); MONO # 0.5 10*3/uL (0.1-1.0); MONO % 8.6 % (3.0-9.0); NEUT # 2.9 10*3/uL (2.3-7.9); NEUT % 48.6 % (47.0-73.0); PLATELET COUNT AUTOMATED 136 10*3/uL (130-400); RED BLOOD COUNT 4.57 10*6/uL (4.50-5.90); RED CELL DISTRI WIDTH 12.9 % (0-14.5)
[2020-01-28 17:18] LABS: ALBUMIN 3.3 gm/dl (3.1-4.5); ALKALINE PHOSPHATASE 108 U/L (45-117); BUN 15 mg/dl (7-24); CHLORIDE 110 mmol/L (98-107); CREATININE 1.14 mg/dL (0.70-1.30); POTASSIUM 3.7 mmol/L (3.5-5.1); SGOT/AST 18 IU/L (3-35); SGPT/ALT 29 U/L (12-78); SODIUM 143 mmol/L (136-145); TOTAL PROTEIN 6.4 gm/dL (6.4-8.2)
[2020-01-28 17:19] LABS: TROPONIN I < 0.015 ng/ml (<0.045)
[2020-01-28 17:21] LABS: ACT PARTIAL THROMBO TIME 24.8 SECONDS (20.0-32.1)
[2020-01-28 18:35] VITALS: BP 114/68
== END 2020-01-28 19:00 | disposition home or self-care (01) ==
LOC: ED 16:25
PROVIDERS: Emergency Medicine
DX: I49.9 Cardiac arrhythmia, unspecified (principal); R42 Dizziness and giddiness; K21.9 Gastro-esophageal reflux disease without esophagitis; F41.9 Anxiety disorder, unspecified; F32.9 Major depressive disorder, single episode, unspecified; Z79.899 Other long term (current) drug therapy; Z79.82 Long term (current) use of aspirin

== ENCOUNTER → 2024-12-10 | Outpatient (CLI) | payer OTHER ==
[2024-12-10 10:39] LABS: BASO # 0.1 10*3/uL (0.0-0.1); BASO % 0.8 % (0.0-1.0); EOS # 0.5 10*3/uL (0.0-0.4); EOS % 7.1 % (1.0-4.0); HEMATOCRIT 47.1 % (42.0-52.0); MEAN CELL VOLUME 92.9 fl (80.0-94.0); MEAN CORPUSCULAR HGB 31.2 pg (27.0-31.0); MEAN CORPUSCULAR HGB CONC 33.5 g/dl (33.0-37.0); MEAN PLATELET VOLUME 9.7 fl (9.6-12.3); MONO # 0.8 10*3/uL (0.1-1.0); MONO % 12.2 % (3.0-9.0); NEUT # 3.2 10*3/uL (2.3-7.9); NEUT % 48.9 % (47.0-73.0); PLATELET COUNT AUTOMATED 141 10*3/uL (130-400); RED BLOOD COUNT 5.07 10*6/uL (4.50-5.90); RED CELL DISTRI WIDTH 13.2 % (0-14.5); WHITE BLOOD COUNT 6.5 10*3/uL (4.8-10.8)
[2024-12-10 13:32] LABS: BF LYMPHOCYTES 2 %; BF MACROPHAGES 85 %; BF NEUTROPHILS 6 %
[2024-12-11 11:07] LABS: ACID FAST SPEC PROCESSING Direct Inoculation (.)
== END | disposition home or self-care (01) ==
LOC: LAB 09:28
PROVIDERS: ATTEND Orthopaedic Surgery
DX: M25.462 Effusion, left knee (principal)